=== PATIENT | female | born 1975 | race Two or more races ===

== ENCOUNTER → 2017-12-18 | Outpatient (CLI) | payer MEDICAID | END | disposition home or self-care (01) | LOC: Rad HDHVI 11:10 | PROVIDERS: ATTEND Internal Medicine Cardiovascular Disease | DX: I82.409 Acute embolism and thrombosis of unspecified deep veins of unspecified lower extremity (principal); I10 Essential (primary) hypertension | CPT/HCPCS: 93970 ==

== ENCOUNTER → 2018-01-02 | Outpatient (CLI) | payer MEDICAID ==
[~2018-01-02] VITALS: Ht 154.9 cm; Wt 122.9 kg
[~2018-01-02] MED LIST: ADENOSINE 103 MG in GIVE UN-DILUTED 0 ML IV ONE; ADENOSINE 90 MG/30 ML INJ IV ONE
== END | disposition home or self-care (01) ==
LOC: Rad HDHVI 09:45
PROVIDERS: ATTEND Internal Medicine Cardiovascular Disease
DX: Z01.810 Encounter for preprocedural cardiovascular examination (principal); I10 Essential (primary) hypertension; E66.9 Obesity, unspecified
CPT/HCPCS: 78452; 93005; 96374; 96375; A9500; J0153

== ENCOUNTER 2023-02-06 12:42 | Inpatient (IN) | payer MEDICAID ==
[~2023-02-06] VITALS: Ht 152.4 cm; Wt 140.6 kg
[2023-02-06] MEDS ORDERED: cefTRIAXone 1GM/50ML D5W 50 ML IV ONE (14:45)
[2023-02-06] MEDS ORDERED: CLINDAMYCIN 600MG IV 50 ML IV ONE (14:45)
[2023-02-06 17:21] LABS: Basophils # (auto) 0.1 10 ^3/uL (0-0.2); Hemoglobin 11.6 g/dL (12.2-16.2); Lymphocytes # (auto) 2.6 10 ^3/uL (0.4-5.4); Mean Corpuscular Hemoglobin 26.9 pg (28.0-32.0); Neutrophils # (auto) 8.8 10 ^3/uL (1.6-8.6)
[2023-02-06 17:23] LABS: Basophils % (auto) 0.4 % (0.0-2.0); Eosinophils # (auto) 0.1 10 ^3/uL (0-0.8); Eosinophils % (auto) 1.2 % (0.0-7.0); Hematocrit 35.6 % (36.0-46.0); Lymphocytes % (auto) 20.6 % (10.0-50.0); Mean Corpuscular Hgb Conc. 32.4 g/dL (32.0-36.0); Mean Corpuscular Volume 82.9 fL (80.0-100.0); Monocytes % (auto) 8.1 % (0.0-12.0); Neutrophils % (auto) 69.7 % (37.0-80.0); Red Cell Distribution Width 14.9 % (11.8-14.3); White Blood Cell 12.6 10^3/uL (4.4-10.8)
[2023-02-06] MEDS ORDERED: ONDANSETRON HCL 4 MG/2 ML VIAL IV PRN (17:30)
[2023-02-06] MEDS ORDERED: DOCUSATE SOD 100 MG CAP PO PRN (17:30)
[2023-02-06 17:37] LABS: INR 0.95 (0.9-1.15)
[2023-02-06 18:05] LABS: Albumin 2.6 g/dL (3.4-5.0); Calcium 8.7 mg/dL (8.5-10.1); Potassium 3.9 mmol/L (3.5-5.1)
[2023-02-06 18:07] LABS: Bilirubin, Total 0.3 mg/dL (0.2-1.0); Total Protein 7.9 g/dL (6.4-8.2)
[2023-02-06] MEDS ORDERED: CLINDAMYCIN 600MG IV 50 ML IV SCH (22:00)
[2023-02-07] MEDS: SODIUM CHLORIDE 0.9% 1,000 ML IV SCH ×3 (03:57→11:01)
[2023-02-07] MEDS: ENOXAPARIN SOD 40 MG/0.4 ML SYRINGE SC SCH ×3 (04:00→22:28)
[2023-02-07 06:43] LABS: Basophils # (auto) 0 10 ^3/uL (0-0.2); Basophils % (auto) 0.3 % (0.0-2.0); Eosinophils # (auto) 0.1 10 ^3/uL (0-0.8); Eosinophils % (auto) 0.6 % (0.0-7.0); Hematocrit 37.5 % (36.0-46.0); Hemoglobin 12.2 g/dL (12.2-16.2); Lymphocytes # (auto) 2.2 10 ^3/uL (0.4-5.4); Lymphocytes % (auto) 14.5 % (10.0-50.0); Mean Corpuscular Hgb Conc. 32.7 g/dL (32.0-36.0); Mean Corpuscular Volume 82.6 fL (80.0-100.0); Monocytes # (auto) 1.1 10 ^3/uL (0-1.3); Monocytes % (auto) 7.1 % (0.0-12.0); Neutrophils # (auto) 11.6 10 ^3/uL (1.6-8.6); Neutrophils % (auto) 77.5 % (37.0-80.0); Red Blood Cells 4.54 10^6/uL (4.0-5.20); Red Cell Distribution Width 15.1 % (11.8-14.3); White Blood Cell 14.9 10^3/uL (4.4-10.8)
[2023-02-07 06:55] LABS: Potassium 4.4 mmol/L (3.5-5.1)
[2023-02-07 07:05] LABS: Albumin 2.8 g/dL (3.4-5.0); BUN/Creatinine Ratio 20.8 (10.0-20.0); Bilirubin, Total 0.4 mg/dL (0.2-1.0); Calcium 8.7 mg/dL (8.5-10.1); Total Protein 8.4 g/dL (6.4-8.2)
[2023-02-07] MEDS ORDERED: HYDROcodone-ACET 5/325MG TAB PO ONE (09:45)
[2023-02-07] MEDS ORDERED: ENOXAPARIN SOD 40 MG/0.4 ML SYRINGE SC SCH (10:00)
[2023-02-07 10:45] LABS: Urine Bacteria NONE SEEN /hpf (None Seen); Urine Blood 3+ /uL (Negative); Urine WBC 1194 /hpf (0 - 5); Urine WBC Clumps PRESENT /hpf (None Seen)
[2023-02-07] MEDS ORDERED: VANCOMYCIN PER PHARMACY 0 MG IV SCH (13:45)
[2023-02-07] MEDS ORDERED: PANTOPRAZOLE 40 MG TAB PO ONE (13:45)
[2023-02-07] MEDS ORDERED: metroNIDAZOLE 500MG/100ML 100 ML IV SCH (14:00)
[2023-02-07] MEDS: CEFEPIME 2 GM in SODIUM CHL 0.9% 50 ML IV SCH ×2 (15:56→22:30)
[2023-02-07 17:00] VITALS: BP 120/67
[2023-02-07] MEDS: HYDROcodone-ACET 5/325MG TAB PO PRN (17:32)
[2023-02-07] MEDS: VANCOMYCIN 1GM/250ML 250 ML IV SCH ×2 (17:33→18:38)
[2023-02-07 18:08] VITALS: BP 120/67
[2023-02-07 19:40] VITALS: BP 106/68
[2023-02-07 22:00] VITALS: BP 106/68
[2023-02-08] MEDS: HYDROcodone-ACET 5/325MG TAB PO PRN ×3 (03:25→22:13)
[2023-02-08 05:00] VITALS: BP 102/72
[2023-02-08] MEDS: VANCOMYCIN 1GM/250ML 250 ML IV SCH ×3 (05:36→22:13)
[2023-02-08] MEDS: CEFEPIME 2 GM in SODIUM CHL 0.9% 50 ML IV SCH ×3 (06:21→23:59)
[2023-02-08 06:28] LABS: Basophils # (auto) 0 10 ^3/uL (0-0.2); Eosinophils # (auto) 0.2 10 ^3/uL (0-0.8); Hemoglobin 10.4 g/dL (12.2-16.2); Lymphocytes # (auto) 2.4 10 ^3/uL (0.4-5.4); Mean Corpuscular Volume 83.1 fL (80.0-100.0); Monocytes # (auto) 1.2 10 ^3/uL (0-1.3)
[2023-02-08 06:30] LABS: Basophils % (auto) 0.3 % (0.0-2.0); Eosinophils % (auto) 1.4 % (0.0-7.0); Hematocrit 32.1 % (36.0-46.0); Lymphocytes % (auto) 16.8 % (10.0-50.0); Mean Corpuscular Hgb Conc. 32.5 g/dL (32.0-36.0); Monocytes % (auto) 8.6 % (0.0-12.0); Neutrophils # (auto) 10.3 10 ^3/uL (1.6-8.6); Neutrophils % (auto) 72.9 % (37.0-80.0); Red Blood Cells 3.87 10^6/uL (4.0-5.20); Red Cell Distribution Width 15.1 % (11.8-14.3); White Blood Cell 14.1 10^3/uL (4.4-10.8)
[2023-02-08 06:31] LABS: Potassium 4.1 mmol/L (3.5-5.1)
[2023-02-08 06:38] LABS: Calcium 8.2 mg/dL (8.5-10.1)
[2023-02-08] MEDS: PANTOPRAZOLE 40 MG TAB PO SCH (08:42)
[2023-02-08] MEDS: ENOXAPARIN SOD 40 MG/0.4 ML SYRINGE SC SCH ×2 (08:43→22:13)
[2023-02-08] MEDS: MORPHINE SULFATE INJ 2 MG/ml SYRG IV PRN ×2 (08:44→17:36)
[2023-02-08 09:00] VITALS: BP 111/74
[2023-02-08 13:00] VITALS: BP 121/76
[2023-02-08 17:00] VITALS: BP 123/76
[2023-02-08 22:00] VITALS: BP 107/73
[2023-02-09 05:00] VITALS: BP 116/71
[2023-02-09] MEDS: VANCOMYCIN 1GM/250ML 250 ML IV SCH ×3 (05:51→21:35)
[2023-02-09 06:41] LABS: Eosinophils # (auto) 0.2 10 ^3/uL (0-0.8); Eosinophils % (auto) 1.6 % (0.0-7.0); Hemoglobin 10.6 g/dL (12.2-16.2); Lymphocytes # (auto) 2.6 10 ^3/uL (0.4-5.4); Neutrophils # (auto) 8.7 10 ^3/uL (1.6-8.6); White Blood Cell 12.6 10^3/uL (4.4-10.8)
[2023-02-09 06:44] LABS: Basophils # (auto) 0 10 ^3/uL (0-0.2); Basophils % (auto) 0.4 % (0.0-2.0); Hematocrit 32.2 % (36.0-46.0); Lymphocytes % (auto) 20.8 % (10.0-50.0); Mean Corpuscular Hemoglobin 27.2 pg (28.0-32.0); Mean Corpuscular Hgb Conc. 32.9 g/dL (32.0-36.0); Mean Corpuscular Volume 82.6 fL (80.0-100.0); Monocytes % (auto) 8.3 % (0.0-12.0); Neutrophils % (auto) 68.9 % (37.0-80.0); Nucleated Red Blood Cells % 0.1 %; Red Cell Distribution Width 15.3 % (11.8-14.3)
[2023-02-09] MEDS: CEFEPIME 2 GM in SODIUM CHL 0.9% 50 ML IV SCH (06:59)
[2023-02-09 09:00] VITALS: BP 114/66
[2023-02-09] MEDS: PANTOPRAZOLE 40 MG TAB PO SCH (10:06)
[2023-02-09] MEDS: POTASSIUM CHL 20 Meq TABLET PO SCH (10:07)
[2023-02-09] MEDS: FUROSEMIDE 40 MG TAB PO SCH (10:07)
[2023-02-09] MEDS: ENOXAPARIN SOD 40 MG/0.4 ML SYRINGE SC SCH ×2 (10:08→21:35)
[2023-02-09] MEDS: HYDROcodone-ACET 5/325MG TAB PO PRN ×2 (10:13→21:35)
[2023-02-09 13:00] VITALS: BP 100/62
[2023-02-09] MEDS: MORPHINE SULFATE INJ 2 MG/ml SYRG IV PRN ×2 (15:17→23:34)
[2023-02-09 17:00] VITALS: BP 107/69
[2023-02-09 22:00] VITALS: BP 109/66
[2023-02-09] MEDS: CEFEPIME 2GM/50ML NS 50 ML IV SCH (22:00)
[2023-02-10] MEDS: HYDROcodone-ACET 5/325MG TAB PO PRN (03:58)
[2023-02-10 05:00] VITALS: BP 119/71
[2023-02-10] MEDS: VANCOMYCIN 1GM/250ML 250 ML IV SCH ×3 (05:21→21:14)
[2023-02-10 05:32] LABS: Basophils # (auto) 0 10 ^3/uL (0-0.2); Basophils % (auto) 0.3 % (0.0-2.0); Lymphocytes # (auto) 2.7 10 ^3/uL (0.4-5.4); Monocytes # (auto) 0.9 10 ^3/uL (0-1.3)
[2023-02-10 05:37] LABS: Eosinophils # (auto) 0.2 10 ^3/uL (0-0.8); Eosinophils % (auto) 1.6 % (0.0-7.0); Hematocrit 34.3 % (36.0-46.0); Hemoglobin 11.2 g/dL (12.2-16.2); Lymphocytes % (auto) 22.7 % (10.0-50.0); Mean Corpuscular Hemoglobin 26.8 pg (28.0-32.0); Mean Corpuscular Hgb Conc. 32.7 g/dL (32.0-36.0); Mean Corpuscular Volume 82.1 fL (80.0-100.0); Monocytes % (auto) 7.5 % (0.0-12.0); Neutrophils # (auto) 8.2 10 ^3/uL (1.6-8.6); Neutrophils % (auto) 67.9 % (37.0-80.0); Red Blood Cells 4.18 10^6/uL (4.0-5.20); Red Cell Distribution Width 15.5 % (11.8-14.3)
[2023-02-10 05:44] LABS: Potassium 4.8 mmol/L (3.5-5.1)
[2023-02-10 05:53] LABS: Albumin 2.4 g/dL (3.4-5.0); BUN/Creatinine Ratio 19.7 (10.0-20.0); Bilirubin, Total 0.3 mg/dL (0.2-1.0); Calcium 8.5 mg/dL (8.5-10.1); Total Protein 6.6 g/dL (6.4-8.2)
[2023-02-10] MEDS: CEFEPIME 2GM/50ML NS 50 ML IV SCH ×3 (06:30→22:44)
[2023-02-10 09:00] VITALS: BP 107/73
[2023-02-10] MEDS: ENOXAPARIN SOD 40 MG/0.4 ML SYRINGE SC SCH ×2 (09:59→21:22)
[2023-02-10] MEDS: PANTOPRAZOLE 40 MG TAB PO SCH (10:00)
[2023-02-10] MEDS: POTASSIUM CHL 20 Meq TABLET PO SCH (10:00)
[2023-02-10] MEDS: FUROSEMIDE 40 MG TAB PO SCH (10:00)
[2023-02-10] MEDS: HYDROcodone-ACET 10/325MG TAB PO PRN ×2 (10:02→16:55)
[2023-02-10 13:00] VITALS: BP 115/68
[2023-02-10 17:00] VITALS: BP 108/69
[2023-02-10 22:00] VITALS: BP 98/69
[2023-02-11] MEDS: HYDROcodone-ACET 10/325MG TAB PO PRN ×4 (01:28→21:44)
[2023-02-11 05:00] VITALS: BP 100/66
[2023-02-11] MEDS: VANCOMYCIN 1GM/250ML 250 ML IV SCH ×2 (05:21→17:55)
[2023-02-11] MEDS: CEFEPIME 2GM/50ML NS 50 ML IV SCH (06:33)
[2023-02-11 07:33] LABS: Basophils # (auto) 0 10 ^3/uL (0-0.2); Basophils % (auto) 0.3 % (0.0-2.0); Eosinophils # (auto) 0.1 10 ^3/uL (0-0.8); Eosinophils % (auto) 1.2 % (0.0-7.0); Monocytes # (auto) 0.8 10 ^3/uL (0-1.3); Neutrophils # (auto) 7.5 10 ^3/uL (1.6-8.6)
[2023-02-11 07:36] LABS: Hematocrit 33.4 % (36.0-46.0); Lymphocytes # (auto) 2.5 10 ^3/uL (0.4-5.4); Lymphocytes % (auto) 22.6 % (10.0-50.0); Mean Corpuscular Hemoglobin 27.3 pg (28.0-32.0); Mean Corpuscular Hgb Conc. 33.1 g/dL (32.0-36.0); Mean Corpuscular Volume 82.4 fL (80.0-100.0); Monocytes % (auto) 7.3 % (0.0-12.0); Neutrophils % (auto) 68.6 % (37.0-80.0); Red Blood Cells 4.05 10^6/uL (4.0-5.20); Red Cell Distribution Width 15.2 % (11.8-14.3)
[2023-02-11 07:53] LABS: Potassium 3.9 mmol/L (3.5-5.1)
[2023-02-11 07:57] LABS: BUN/Creatinine Ratio 14.8 (10.0-20.0); Calcium 8.5 mg/dL (8.5-10.1)
[2023-02-11] MEDS: PANTOPRAZOLE 40 MG TAB PO SCH (08:34)
[2023-02-11] MEDS: Juven Orange Powder PACKET 27.5gm PO SCH (08:36)
[2023-02-11] MEDS: FUROSEMIDE 40 MG TAB PO SCH (08:36)
[2023-02-11] MEDS: ENOXAPARIN SOD 40 MG/0.4 ML SYRINGE SC SCH ×2 (08:43→21:43)
[2023-02-11 09:00] VITALS: BP 104/69
[2023-02-11] MEDS ORDERED: POTASSIUM CHL 10 Meq TABLET PO ONE (10:45)
[2023-02-11 13:00] VITALS: BP 106/69
[2023-02-11 17:00] VITALS: BP 102/60
[2023-02-11] MEDS ORDERED: CEFEPIME 2GM/50ML NS 50 ML IV SCH (18:00)
[2023-02-11] MEDS ORDERED: VANCOMYCIN 1GM/250ML 250 ML IV SCH (18:00)
[2023-02-11 22:00] VITALS: BP 101/62
[2023-02-12] MEDS: VANCOMYCIN 1GM/250ML 250 ML IV SCH ×3 (02:08→18:18)
[2023-02-12] MEDS: HYDROcodone-ACET 10/325MG TAB PO PRN ×3 (04:58→18:24)
[2023-02-12 05:00] VITALS: BP 114/75
[2023-02-12] MEDS: CEFEPIME 2GM/50ML NS 50 ML IV SCH ×2 (05:38→17:00)
[2023-02-12 06:38] LABS: Potassium 4.7 mmol/L (3.5-5.1)
[2023-02-12 06:39] LABS: Basophils # (auto) 0 10 ^3/uL (0-0.2); Basophils % (auto) 0.3 % (0.0-2.0); Eosinophils # (auto) 0.1 10 ^3/uL (0-0.8); Eosinophils % (auto) 0.9 % (0.0-7.0); Monocytes # (auto) 0.8 10 ^3/uL (0-1.3)
[2023-02-12 06:42] LABS: Hematocrit 33.4 % (36.0-46.0); Lymphocytes # (auto) 2.3 10 ^3/uL (0.4-5.4); Lymphocytes % (auto) 19.3 % (10.0-50.0); Mean Corpuscular Hemoglobin 27.1 pg (28.0-32.0); Mean Corpuscular Hgb Conc. 33.1 g/dL (32.0-36.0); Monocytes % (auto) 6.9 % (0.0-12.0); Neutrophils # (auto) 8.8 10 ^3/uL (1.6-8.6); Neutrophils % (auto) 72.6 % (37.0-80.0); Red Blood Cells 4.07 10^6/uL (4.0-5.20); Red Cell Distribution Width 15.3 % (11.8-14.3); White Blood Cell 12.2 10^3/uL (4.4-10.8)
[2023-02-12 06:47] LABS: BUN/Creatinine Ratio 23.2 (10.0-20.0); Calcium 8.9 mg/dL (8.5-10.1)
[2023-02-12 09:00] VITALS: BP 113/69
[2023-02-12] MEDS: FUROSEMIDE 40 MG TAB PO SCH (09:19)
[2023-02-12] MEDS: POTASSIUM CHL 10 Meq TABLET PO SCH (09:20)
[2023-02-12] MEDS: PANTOPRAZOLE 40 MG TAB PO SCH (09:20)
[2023-02-12] MEDS: Juven Orange Powder PACKET 27.5gm PO SCH (09:21)
[2023-02-12] MEDS: ENOXAPARIN SOD 40 MG/0.4 ML SYRINGE SC SCH ×2 (09:22→22:00)
[2023-02-12 13:00] VITALS: BP 116/73
[2023-02-12 17:00] VITALS: BP 123/71
[2023-02-12 23:32] VITALS: BP 110/69
[2023-02-13] MEDS: CEFEPIME 2GM/50ML NS 50 ML IV SCH ×3 (00:19→14:00)
[2023-02-13] MEDS: HYDROcodone-ACET 10/325MG TAB PO PRN ×3 (00:20→12:54)
[2023-02-13] MEDS: VANCOMYCIN 1GM/250ML 250 ML IV SCH ×2 (03:18→09:31)
[2023-02-13 05:11] VITALS: BP 109/74
[2023-02-13 06:00] LABS: Basophils # (auto) 0 10 ^3/uL (0-0.2); Basophils % (auto) 0.3 % (0.0-2.0); Eosinophils # (auto) 0.1 10 ^3/uL (0-0.8); Hematocrit 35.1 % (36.0-46.0); Hemoglobin 11.6 g/dL (12.2-16.2); Lymphocytes # (auto) 1.7 10 ^3/uL (0.4-5.4); Lymphocytes % (auto) 15.8 % (10.0-50.0); Mean Corpuscular Hemoglobin 27.4 pg (28.0-32.0); Mean Corpuscular Hgb Conc. 33.1 g/dL (32.0-36.0); Mean Corpuscular Volume 82.6 fL (80.0-100.0); Monocytes # (auto) 0.7 10 ^3/uL (0-1.3); Monocytes % (auto) 6.8 % (0.0-12.0); Neutrophils # (auto) 8.2 10 ^3/uL (1.6-8.6); Neutrophils % (auto) 76.1 % (37.0-80.0); Nucleated Red Blood Cells % 0.2 %; Red Blood Cells 4.24 10^6/uL (4.0-5.20); White Blood Cell 10.8 10^3/uL (4.4-10.8)
[2023-02-13 08:54] VITALS: BP 120/75
[2023-02-13] MEDS: FUROSEMIDE 40 MG TAB PO SCH (09:30)
[2023-02-13] MEDS: PANTOPRAZOLE 40 MG TAB PO SCH (09:30)
[2023-02-13] MEDS: POTASSIUM CHL 10 Meq TABLET PO SCH (09:30)
[2023-02-13] MEDS: Juven Orange Powder PACKET 27.5gm PO SCH (09:36)
[2023-02-13] MEDS: ENOXAPARIN SOD 40 MG/0.4 ML SYRINGE SC SCH (09:37)
[2023-02-13] MEDS ORDERED: LEVO500T91 PO (11:02)
[2023-02-13] MEDS ORDERED: CLIN300C70 PO (11:02)
[2023-02-13 13:00] VITALS: BP 109/72
[2023-02-13 15:21] VITALS: BP 120/75
== END 2023-02-13 16:20 | disposition home health service (06) | DRG 720 ==
LOC: ER 12:42 → OVERFLOW 17:38 → CENTRAL 02-07 17:23
PROVIDERS: ADMIT Nurse Practitioner Family; ATTEND Internal Medicine
PROC: 05HD33Z Insertion of Infusion Device into Right Cephalic Vein, Percutaneous Approach (ICD-10-PCS; principal; 2023-02-11)
PROC: B54MZZA Ultrasonography of Right Upper Extremity Veins, Guidance (ICD-10-PCS; 2023-02-11)
DX: A41.9 Sepsis, unspecified organism (principal); I50.33 Acute on chronic diastolic (congestive) heart failure; C85.95 Non-Hodgkin lymphoma, unspecified, lymph nodes of inguinal region and lower limb; Z68.44 Body mass index [BMI] 60.0-69.9, adult; L03.115 Cellulitis of right lower limb; D64.9 Anemia, unspecified; E66.01 Morbid (severe) obesity due to excess calories; N39.0 Urinary tract infection, site not specified; R73.03 Prediabetes; I11.0 Hypertensive heart disease with heart failure
CPT/HCPCS: 36415; 71045; 73700; 80048; 80053; 80202; 81001; 83036; 83605; 83880; 84484; 85025; 85610; 85652; 85730; 86141; 87040; 87086; 93971; G0378; J0692; J0696